=== PATIENT | male | born 1990 | race Native Hawaiian/Other Pacific Islander ===

== ENCOUNTER 2018-12-05 07:06 | Emergency (ER) | payer SELFPAY ==
[2018-12-05 07:26] VITALS: BP 145/99
[2018-12-05] MEDS ORDERED: XYLOCAINE TOPICAL 2% 5ML ONE (08:11)
[2018-12-05] MEDS: XYLOCAINE 2% UROJET UR ONE ×2 (08:13→08:33)
[2018-12-05] MEDS ORDERED: XYLOCAINE TOPICAL 2% 5ML TP ONE (08:27)
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
== END 2018-12-05 09:40 | disposition home or self-care (01) ==
LOC: ED 07:06
DX: S00.412A Abrasion of left ear, initial encounter (principal); T16.2XXA Foreign body in left ear, initial encounter; E03.9 Hypothyroidism, unspecified; Z79.899 Other long term (current) drug therapy; X58.XXXA Exposure to other specified factors, initial encounter; Y93.9 Activity, unspecified; Y92.89 Other specified places as the place of occurrence of the external cause; Y99.8 Other external cause status

== ENCOUNTER 2019-12-01 14:39 | Outpatient (CLI) | payer BC ==
--- NOTE | 2019-12-01 16:41 | Ultrasound Report ---
CLINICAL DATA: MAIN TECHNICAL DATA: High-resolution grayscale images of the thyroid gland were obtained. Doppler imaging was performed. FINDINGS: The right thyroid lobe measures 5.8 x 1.0 x 2.2 cm. The left thyroid lobe measures 6.0 x 1.3 x 1.8 cm . The thyroid isthmus measures 0.2 cm. The thyroid parenchyma is homogeneous in echogenicity. One score is assigned from each of the following categories: composition: echogenicity: shape: margin: echogenic foci: IMPRESSION: Normal thyroid ultrasound without evidence of a focal lesion ACR TI-RADS is a reporting system for thyroid nodules on ultrasound proposed by the [employer] (ACR) 1. This uses a standardised scoring system for reports providing users with recommendations for when to use fine needle aspiration (FNA) or ultrasound follow-up of suspicious nodules, and when to safely le ave alone nodules that are benign/not suspicious. Ultrasound features Scoring is determined from five categories of ultrasound findings (figure 2). The higher the cumulati ve score, the higher the TR level and likelihood of malignancy. The findings in each category were detailed in the ACR committee's 2015 publication on a reporting le xicon 2. If multiple nodules ( 4) are present only the four highest scoring nodules, not necessarily the largest, should be scored, reported, and followed up. Scoring and classification TR1: 0 points benign TR2: 2 points not suspicious TR3: 3 points mildly suspicious TR4: 4-6 points moderately suspicious TR5: 7 points highly suspicious Recommendations TR1: no FNA required TR2: no FNA required TR3: 1.5 cm follow up, 2.5 cm FNA follow up: 1, 3 and 5 years TR4: 1.0 cm follow up, 1.5 cm FNA follow up: 1, 2, 3 and 5 years TR5: 0.5 cm follow up, 1.0 cm FNA annual follow up for up to 5 years. Signer Name: Boo Vazquez MD Signed: 12/01/2019 4:37 PM Workstation Name: [id number]
== END 2019-12-01 14:40 | disposition home or self-care (01) ==
LOC: US 14:39
PROVIDERS: ATTEND Internal Medicine
DX: E05.90 Thyrotoxicosis, unspecified without thyrotoxic crisis or storm (principal)
CPT/HCPCS: 76536